=== PATIENT | male | born 1970 | race Hispanic/Latino ===

== ENCOUNTER → 2018-11-20 | Outpatient (CLI) | payer OTHER ==
--- NOTE | 2018-11-21 09:45 | Diagnostic Imaging Report ---
EXAM: CT left ankle without contrast INDICATION: Osteochondritis dissecans. Ankle pain. Decreased range of motion. Swelling COMPARISON: None TECHNIQUE: Left ankle was scanned utilizing a multidetector helical scanner without administration of IV contrast. Coronal and sagittal reformations were obtained. Routine protocol was performed. IV CONTRAST: None ORAL CONTRAST: None COMPLICATIONS: None RADIATION DOSE: Total DLP: 121.83 mGy*cm Estimated effective dose: (DLP x 0.015 x size factor) mSv CTDIvol has been reviewed. It is below the limits set by the Radiation Protocol Committee (RPC). Dose modulation, iterative reconstruction, and/or weight based adjustment of the mA/kV was utilized to reduce the radiation dose to as low as reasonably achievable. FINDINGS: 1.0 x 1.0 x 1.0 cm osteochondral lesion at the anterior lateral talar dome with subtle minimal depression of the cortex best seen on coronal reformatted image 47. There is associated subchondral cystic change and bony sclerosis along the periphery. No free fragmentation or intra-articular loose body is seen. Chronic appearing deformity at the tip of the fibula. No acute fracture, dislocation or evidence of avascular necrosis. Scattered degenerative changes are seen. The visualized muscles are normal in size and morphology. No radiopaque foreign body is seen. No abnormal fluid collection is seen. Impression: 1 cm osteochondral lesion at the anterior lateral talar dome. No evidence of free fragmentation or intra-articular loose body. Signed by: Dr. Emeka Nieto M.D. on 11/21/2018 9:41 AM
== END ==
LOC: CT 17:05
PROVIDERS: ATTEND Podiatrist Foot & Ankle Surgery
DX: M93.272 Osteochondritis dissecans, left ankle and joints of left foot (principal)